=== PATIENT | male | born 1985 | race Hispanic/Latino ===

== ENCOUNTER 2022-04-16 08:56 | Emergency (ER) | payer SELFPAY ==
[~2022-04-16] VITALS: Ht 193 cm; Wt 74.8 kg
[2022-04-16 08:56] VITALS: BP 146/79
[2022-04-16] MEDS ORDERED: ATROVENT IH STA (09:12)
[2022-04-16] MEDS ORDERED: PREDNISONE PO STA (09:12)
--- NOTE | 2022-04-16 09:12 | ER.PDOC ---
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 Hacky non productive coughh Timing/Duration: 1 week Severity: moderate Activities at Onset: other (co.ld) Prior Episodes/Possible Cause: chronic episodes Modifying Factors: improves with albuterol inhaler Associated Symptoms: cough, diaphoresis, weakness, wheezing Past Medical History Medical History: asthma Surgical History: no surgical history Family History Significant Family History: no pertinent family hx Social History Smoking: cigarettes Reviewed Nursing Reviewed: Vital Signs, Abn. Noted, Nursing Assessment Review of Systems Constitutional: no symptoms reported EENTM: no symptoms reported Respiratory: see HPI Cardiovascular: no symptoms reported Gastrointestinal: no symptoms reported Genitourinary: no symptoms reported Musculoskeletal: no symptoms reported Skin: no symptoms reported Psychiatric/Neurological: no symptoms reported Endocrine: no symptoms reported Hematologic/Lymphatic: no symptoms reported All Other Systems: Reviewed and Negative Physical Exam General Appearance: No Apparent Distress HEENT: PERRL/EOMI, Normal ENT Inspection, Pharynx Normal Neck: Non-Tender, Full Range of Motion, Supple Respiratory: chest non-tender, wheezing, inspiration Cardiovascular: Normal Peripheral Pulses Gastrointestinal: Non Tender Rectal: Deferred Extremities: Normal Range of Motion, Non-Tender 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 Skin: Normal Color Results/Orders Results/Orders Orders - MAYA PERRIN MD Albuterol Sulfate (Ventolin) (04/16/22 09:30) Ipratropium [place] (Atrovent) (04/16/22 09:12) Prednisone (Prednisone) (04/16/22 09:12) Ipratropium/Albuterol Sulfate (Duo 0.5-3 (04/16/22 09:29) Vital Signs Date Time Temp Pulse Resp B/P (MAP) Pulse Ox O2 Delivery O2 Flow Rate FiO2 04/16/22 09:35 74 16 94 Room Air* 0 21 04/16/22 09:30 74 18 97 Room Air* 0 21 04/16/22 08:56 97.8 83 18 04/16/22 08:56 97.8 83 18 94 04/16/22 08:56 97.8 83 18 146/79 (101) 94 Room Air* 0 21 Administered Medications Medications (Trade) Dose Ordered Sig/Jyothi Route PRN Reason Start Time Stop Time Status Last Admin Dose Admin Albuterol Sulfate (Ventolin) 2.5 mg STAT IH 04/16/22 09:30 05/16/22 09:29 UNV 04/16/22 09:33 2.5 MG Ipratropium [place] (Atrovent) 0.5 mg STAT STAT IH 04/16/22 09:12 04/16/22 09:13 UNV 04/16/22 09:12 0.5 MG Prednisone (Prednisone) 40 mg STAT STAT PO 04/16/22 09:12 04/16/22 09:13 UNV 04/16/22 09:23 40 MG Progress Progress improved ER DEPART Departure Time of Disposition: 09:36 Disposition: 01 HOME / SELF CARE / HOMELESS Impression: Primary Impression: Asthma Additional Impression: Cigarette smoker Condition: Stable Referrals: PCP,UNKNOWN (PCP) PRIMARY CARE PROVIDER Comments prednisone zithromax 500mg daily x 3 days no smoking continue inhaler f/u with pcp Duration or Time Spent with Pa: 20 Return to Work/School Can a patient return to work?: No (2 days off) Problem Qualifiers MAYA PERRIN MD Apr 16, 2022 09:12
[2022-04-16] MEDS ORDERED: PREDNISONE ONE (09:19)
[2022-04-16] MEDS ORDERED: DUO 0.5-3(2.5) MG/3 ML IH ONE (09:29)
[2022-04-16] MEDS ORDERED: VENTOLIN IH SCH (09:30)
== END 2022-04-16 09:56 | disposition home or self-care (01) ==
LOC: ER 08:56
DX: J45.909 Unspecified asthma, uncomplicated (principal); F17.210 Nicotine dependence, cigarettes, uncomplicated; R61 Generalized hyperhidrosis
CPT/HCPCS: 99283; 94640; J7512